=== PATIENT | male | born 1965 | race Caucasian/White ===

== ENCOUNTER → 2016-10-10 | Outpatient (CLI) | payer BC ==
[~2016-10-10] MED LIST: AMLODIPINE BESYL5 MG PO; AUGMENTIN875 M1 DOB; BYSTOLIC5 MG PO; FLAGYL PO; METRONIDAZOLE PO; ZITHROMAX1 G/PKT PO
--- NOTE | ~2016-10-10 | CT2 ---
[facility] A Service of [facility] RADIOLOGY TEXT RESULTS PATIENT: DAX SAEED [facility] : 65 UNIT #: [id number] AGE: [address]: Rajiv Gotti MD SEX: M ORDER DR: [id number] [facility]. [place], [place] [address] [id number] O MR#: [id number] Acc #: [id number] NAME: DAX SAEED : 1965 SEX: M STUDY DATE/TIME: 10/10/2016 15:23 [facility] ROOM: STUDY DESCRIPTION: CT Abd and Pelv W Cont Attending Physician: Rajiv Gotti M.D. Ordering Physician: Rajiv Gotti M.D. Primary Care Physician: Janusz Cohen M.D. MEDICAL IMAGING REPORT This report is preliminary unless electronic signature is present EXAM CT abdomen and pelvis with contrast. INDICATION Restaging colon cancer diagnosed 08/14/2015. Patient is status post colostomy reversal 09/30/2016. Observation for metastatic disease. PROCEDURE Contrast-enhanced CT abdomen and pelvis. 100 mL Isovue-370. This CT exam was performed with one or more of the following radiation dose reduction techniques: automatic exposure control, adjustment of mA and/or kV according to patient size, and iterative reconstruction. COMPARISON 08/14/2015 FINDINGS ABDOMEN WITH CONTRAST: Refer to separately dictated chest CT for thoracic findings. The liver is unremarkable. Spleen measures 13.8 cm. No lesion. Stable renal cysts. Adrenal glands and pancreas unremarkable. Cholelithiasis. No evidence for active inflammation. Bowel loops are nondilated. The patient is status post colostomy reversal. There is anastomoses in the distal rectum. There is some thickening in the anorectal junction that is fairly smooth walled. No definite mass. There is a fluid collection subcutaneous fat in the region of the patient's previous colostomy. It measures 3.1 x 9.1 cm. No adenopathy is seen in the abdomen. PELVIS WITH CONTRAST: There is some stranding in the perirectal fat. No STS. [facility] A Service of [facility] RADIOLOGY TEXT RESULTS PATIENT: DAX SAEED LOCATION: [facility] : 65 UNIT #: [id number] AGE: [address]: Rajiv Gotti MD SEX: M ORDER DR: pelvic adenopathy. Small right and moderate sized fat-containing inguinal hernias. No aggressive appearing bone lesion. IMPRESSION 1. No definitive evidence for metastatic disease. 2. Interval colostomy takedown. There is a fluid collection in the subcutaneous fat at the site of the previous colostomy measuring up to 9.1 cm that probably represents postoperative seroma. Correlate with physical examination and symptoms regarding the possibility of abscess but is disfavoring. 3. Some stranding in the perirectal fat, as well as mild smooth thickening in the anorectal region, presumed to be related to the recent surgery. This can be followed on future studies. Dictated by... Mike Valdes M.D. THIS IS AN ELECTRONICALLY VERIFIED REPORT Mike Valdes M.D. at 10/11/2016 3:55 PM VENKATA/caitlyn TD: 10/11/2016 09:31 JOB #: [id number] MEDICAL IMAGING REPORT Page 1 of 1 COPY
--- NOTE | ~2016-10-10 | CT55 ---
[facility] A Service of [facility] RADIOLOGY TEXT RESULTS PATIENT: DAX SAEED LOCATION: [facility] : 65 UNIT #: [id number] AGE: [address]: Rajiv Gotti MD SEX: M ORDER DR: [id number] [address] [address] [id number] O MR#: [id number] Acc #: [id number] NAME: DAX SAEED : 1965 SEX: M STUDY DATE/TIME: 10/10/2016 15:23 UNIT: [facility] ROOM: STUDY DESCRIPTION: CT Chest W Con Attending Physician: Rajvi Gotti M.D. Ordering Physician: Rajiv Gotti M.D. Primary Care Physician: Janusz Cohen M.D. MEDICAL IMAGING REPORT This report is preliminary unless electronic signature is present EXAM CT chest with contrast INDICATION Restaging colon cancer diagnosed 08/14/2015. Patient status post colostomy reversal 09/30/2016. Observation for metastatic disease. PROCEDURE Contrast-enhanced CT chest. 100 mL Isovue-370. This CT examination was performed with one or more of the following radiation dose reduction techniques: automatic exposure control, adjustment of mA and/or kV according to patient size, and iterative reconstruction. COMPARISON None. FINDINGS The lungs are clear. No pleural fluid. No pneumothorax. No suspicious pulmonary nodule. No adenopathy in the chest. No aggressive appearing bone lesion. IMPRESSION 1. No evidence for metastatic disease to the chest. 2. Refer to the separately dictated abdomen and pelvis CT for findings below the diaphragm. Dictated by... Mike Valdes M.D. THIS IS AN ELECTRONICALLY VERIFIED REPORT Mike Valdes M.D. at 10/11/2016 3:55 PM EED/luiss [facility] A Service of [facility] RADIOLOGY TEXT RESULTS PATIENT: DAX SAEED LOCATION: [facility] : 65 UNIT #: [id number] AGE: [address]: Rajiv Gotti MD SEX: M ORDER DR: TD: 10/11/2016 09:39 JOB #: [id number] MEDICAL IMAGING REPORT Page 1 of 1 COPY
== END | disposition home or self-care (01) ==
LOC: CCAT 12:34
DX: C18.7 Malignant neoplasm of sigmoid colon (principal); D50.0 Iron deficiency anemia secondary to blood loss (chronic); R21 Rash and other nonspecific skin eruption; Z93.3 Colostomy status
CPT/HCPCS: 71260; 74177; Q9967